=== PATIENT | male | born 1970 | race Caucasian/White ===

== ENCOUNTER 2017-09-14 02:15 | Emergency (ER) | payer OTHER ==
[2017-09-14] MEDS ORDERED: Lidocaine 2% EPI 1:200000 MPF*10-20 ML VIAL ONE (02:52)
--- NOTE | 2017-09-14 02:55 | ED ---
Head Injury - HPI Summary HPI Summary: This patient is a 46 year old M presenting to ED with a chief complaint of fall from standing position since 29 today. The patient has sleep apnea and therefore he dozed off for a bit before he fell and hit the table behind him. The patient rates the pain 1/10 in severity. Symptoms aggravated by nothing. Symptoms alleviated by nothing. Patient reports occipital scalp lac, R elbow pain, and R forearm pain. Patient denies LOC. The patient is not taking any anticoagulation. - History Of Current Complaint Chief Complaint: EDHeadInjury Stated Complaint: FALL, HEAD INJURY Time Seen by Provider: 09/14/17 02:38 Hx Obtained From: Patient Mechanism Of Injury: Blunt Trauma - table behind him, Fall From A Standing Position Onset/Duration: Started Hours Ago - 29 Onset of Pain: Post Accident Severity Currently: Mild Severity Initially: Mild Pain Intensity: 1 Pain Scale Used: 0-10 Numeric Location of Head Injury: Occipital Aggravating Factor(s): Other: - nothing Alleviating Factor(s): Other: - nothing Associated Signs And Symptoms: Other: - Patient reports occipital scalp lac, R elbow pain, and R forearm pain. Patient denies LOC. - Allergies/Home Medications Allergies/Adverse Reactions: Allergies Allergy/AdvReac Type Severity Reaction Status Date / Time No Known Allergies Allergy Verified 09/14/17 02:33 Home Medications: Home Medications Docusate Sodium [Colace] 100 mg PO BID 09/14/17 [History Confirmed 09/14/17] Duloxetine HCl [Cymbalta] 60 mg PO DAILY 09/14/17 [History Confirmed 09/14/17] Fluticasone-Salmeterol 100-50* [Advair Diskus 100-50*] 1 puff INH BID 09/14/17 [ History Confirmed 09/14/17] Furosemide [Lasix] 60 mg PO DAILY 09/14/17 [History Confirmed 09/14/17] Levothyroxine Sodium [Synthroid] 350 mcg PO DAILY 09/14/17 [History Confirmed ] Lisinopril 40 mg PO DAILY 09/14/17 [History Confirmed 09/14/17] Sennosides [Senna] 8.6 mg PO BID 09/14/17 [History Confirmed 09/14/17] PMH/Surg Hx/FS Hx/Imm Hx Endocrine/Hematology History: Reports: Hx Diabetes - type II Cardiovascular History: Reports: Hx Congestive Heart Failure Denies: Hx Hypertension Infectious Disease History: No Infectious Disease History: Denies: Traveled Outside the [place] in Last 30 Days - Family History Known Family History: Positive: Diabetes, Other Family History: CHF, stents - Social History Alcohol Use: None Hx Substance Use: No Hx Tobacco Use: Yes Review of Systems Positive: Other - R elbow pain and R forearm pain Positive: Other - occipital scalp lac Neurological: Other - denies LOC All Other Systems Reviewed And Are Negative: Yes Physical Exam - Summary Physical Exam Summary: VITAL SIGNS: Reviewed. GENERAL: Patient is a well-developed and nourished MALE who is lying comfortable in the stretcher. Patient is not in any acute respiratory distress. HEAD AND FACE: No signs of trauma. No ecchymosis, hematomas or skull depressions. No sinus tenderness. EYES: PERRLA, EOMI x 2, No injected conjunctiva, no nystagmus. EARS: Hearing grossly intact. Ear canals and tympanic membranes are within normal limits. MOUTH: Oropharynx within normal limits. NECK: Supple, trachea is midline, no adenopathy, no JVD, no carotid bruit, no c- spine tenderness, neck with full ROM. CHEST: Symmetric, no tenderness at palpation LUNGS: Clear to auscultation bilaterally. No wheezing or crackles. CVS: Regular rate and rhythm, S1 and S2 present, no murmurs or gallops appreciated. ABDOMEN: Soft, non-tender. No signs of distention. No rebound no guarding, and no masses palpated. Bowel sounds are normal. EXTREMITIES: FROM in all major joints, no edema, no cyanosis or clubbing. NEURO: Alert and oriented x 3. No acute neurological deficits. Speech is normal and follows commands. Neuro exam is normal. SKIN: Dry and warm. Scalp laceration about 12 cm. Triage Information Reviewed: Yes Vital Signs On Initial Exam: Initial Vitals Temp Pulse Resp BP Pulse Ox 97.2 F 73 16 126/70 95 09/14/17 02:25 09/14/17 02:25 09/14/17 02:25 09/14/17 02:25 09/14/17 02:25 Vital Signs Reviewed: Yes Procedures - Laceration/Wound Repair 1 Location: Other - occipital scalp Description: Linear Anesthesia: 2.0% - lido with epi Length, Depth and Shape: 12 cm in length Irrigated w/ Saline (ccs): 100 Laceration/Wound Explored: clean Closure: Cheo #__ - 20 Layer Closure?: Yes Sterile Dressing Applied?: Yes Diagnostics - Vital Signs Vital Signs Temp Pulse Resp BP Pulse Ox 09/14/17 02:25 97.2 F 73 16 126/70 95 - Laboratory Lab Statement: Any lab studies that have been ordered have been reviewed, and results considered in the medical decision making process. Head Injury Course/Dx Assessment/Plan: This patient is a 46 year old M presenting to ED with a chief complaint of fall from standing position since 29 today. The wound was cleaned with saline 100 cc. There were 20 stitches placed. There was good alignment and hemostasis. The patient will be discharged with wound care instructions and injury instructions. The patient is agreeable with this plan. - Diagnoses Differential Diagnosis/HQI/PQRI: Other - scalp laceration Provider Diagnoses: Scalp laceration Discharge - Sign-Out/Discharge Documenting (check all that apply): Patient Departure - Discharge Plan Condition: Stable Disposition: HOME Patient Education Materials: Care For Your Stitches (ED), Head Injury (ED) Additional Instructions: PLEASE HAVE YOUR STITCHES REMOVED IN 10-14 DAYS. RETURN TO THE EMERGENCY DEPARTMENT FOR CHANGING OR WORSENING SYMPTOMS.
[2017-09-14 03:24] VITALS: BP 120/66
== END 2017-09-14 03:21 | disposition home or self-care (01) ==
LOC: ED 02:15
DX: S01.01XA Laceration without foreign body of scalp, initial encounter (principal); M25.521 Pain in right elbow; M79.631 Pain in right forearm; W01.190A Fall on same level from slipping, tripping and stumbling with subsequent striking against furniture, initial encounter; Y92.9 Unspecified place or not applicable; I50.9 Heart failure, unspecified; G47.30 Sleep apnea, unspecified; Z79.899 Other long term (current) drug therapy
CPT/HCPCS: 12004; 99282